=== PATIENT | female | born 1960 | race Caucasian/White ===

== ENCOUNTER → 2019-04-16 | Outpatient (CLI) | payer OTHER ==
--- NOTE | 2019-04-16 10:04 | REP ---
MRI LEFT ELBOW: TECHNIQUE: Multiple sequences in the axial, coronal and sagittal planes. Medial and lateral collateral ligaments are intact. There is no tear of the common flexor or extensor tendons. Biceps, triceps, brachialis, and brachioradialis demonstrate no tear. There is mild diffuse spurring at the margins of the joint. 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 There is mild subchondral marrow edema in the proximal ulna and radius. No marrow edema is seen in the distal humerus. There is a moderate joint effusion. There are multiple joint bodies predominantly anterior to the distal humerus. These measure up to 1.5 cm in diameter. Two joint bodies are seen anterior to the radiocapitellar joint, the larger 1 cm in maximum diameter. No ganglion cyst is seen. Ulnar nerve appears unremarkable. IMPRESSION: No evidence of tendon or ligament tear. 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 There is mild to moderate subchondral marrow edema in the proximal radius. Mild subchondral marrow edema is seen in the proximal ulna. There is mild diffuse spurring. There is a moderate joint effusion. There are multiple joint bodies as discussed above. Electronically Signed by Levon Navarro MD 04/16/2019 04:35 P
== END ==
LOC: M RAD 07:31
DX: A69.23 Arthritis due to Lyme disease (principal); M25.522 Pain in left elbow